=== PATIENT | male | born 1990 | race Caucasian/White ===

== ENCOUNTER 2021-01-06 13:29 | Emergency (ER) | payer OTHER ==
[2021-01-06] MEDS ORDERED: NORCO 5-325 TA1 EACH PO (16:27)
== END 2021-01-06 16:39 | disposition home or self-care (01) ==
LOC: FER 13:29
DX: S42.401A Unspecified fracture of lower end of right humerus, initial encounter for closed fracture (principal); W13.2XXA Fall from, out of or through roof, initial encounter; Y92.009 Unspecified place in unspecified non-institutional (private) residence as the place of occurrence of the external cause
CPT/HCPCS: 73080; 73090